=== PATIENT | male | born 1980 | race Caucasian/White ===

== ENCOUNTER 2021-11-07 16:54 | Emergency (ER) | payer SELFPAY ==
[2021-11-07 17:09] VITALS: BP 152/94; PULSE 68; RESP 16; TEMP 36.7; O2SAT 100
--- NOTE | 2021-11-07 17:30 | ED.SKABFB ---
HPI - Skin/Abscess/Foreign Bdy General Chief complaint: Skin/Abscess/Foreign Body Stated complaint: poison Wendy Time Seen by Provider: 11/07/21 17:30 Source: patient and RN notes reviewed Mode of arrival: ambulatory Limitations: no limitations History of Present Illness HPI narrative: 41 male presents concern for poison wendy. He reports rash has been there approximately 9 to 10 days. Reports he was exposed to poison wendy. He denies swollen lips, swollen tongue, trouble breathing. He denies [id number] intervention. MD complaint: rash Related Data Allergies Allergy/AdvReac Type Severity Reaction Status Date / Time No Known Allergies Allergy Unverified 11/07/21 17:07 Review of Systems Review of Systems: CONSTITUTIONAL: Denies malaise, chills, sweats, or fever. CARDIOVASCULAR: Denies chest pain, palpitations, or edema. RESPIRATORY: Denies cough or dyspnea. GASTROINTESTINAL: Denies abdominal pain, nausea, vomiting SKIN: Reports itchy rash to the legs, arm, face MUSCULOSKELETAL: Denies joint pain or myalgia. NEUROLOGIC: Denies headache. All systems reviewed & are unremarkable except as noted in HPI and below PMFSH Comments At time of signature, agree with nursing past medical, surgical, social and family history. There is no relevant family history pertinent to the presenting complaint Exam Narrative: GENERAL: Well-appearing, well-nourished, and in no acute distress. HEAD: Normocephalic, atraumatic. EYES: PERRLA, conjunctivae clear, and EOMI. ENT: Mucous membranes moist. Oropharynx without edema, erythema or lesions. NECK: Supple. No lymphadenopathy CHEST: Clear to auscultation. No respiratory distress. HEART: Regular rate and rhythm. SKIN: Warm, dry. Patches of erythematous papules noted to left lower leg, arms, cheek NEURO: Alert and oriented x3. PSYCH: Normal mood and affect Course Course Emergency Course: Patient is aware of diagnosis, understands and agrees to treatment plan. Anticipatory guidance given. Patient agrees to follow-up as directed and is aware of reasons to seek care at the emergency department. Portions of this record may have been created with voice recognition software Level of Care: Express Care Visit Vital Signs Vital signs: Vital Signs Temperature 98.0 F 11/07/21 17:09 Pulse Rate 68 11/07/21 17:09 Respiratory Rate 16 11/07/21 17:09 Blood Pressure 152/94 H 11/07/21 17:09 Pulse Oximetry 100 11/07/21 17:09 Oxygen Delivery Room Air 11/07/21 17:09 Temperature 98.0 F 11/07/21 17:09 Pulse Rate 68 11/07/21 17:09 Respiratory Rate 16 11/07/21 17:09 Blood Pressure 152/94 H 11/07/21 17:09 Pulse Oximetry 100 11/07/21 17:09 Oxygen Delivery Room Air 11/07/21 17:09 Reviewed. MDM - Skin/Abscess/Foreign Bdy MDM Narrative Medical decision making narrative: Does not appear at this time to be erythema multiforme, bullous, SJS, TEN; no evidence at this time to suggest RMSF, endocarditis or Lyme disease; patient looks well, nontoxic and is tolerating oral intake; no neurologic signs or symptoms; no headache, photophobia or neck pain; afebrile; appropriate for initial outpatient treatment; discussed the importance of follow-up, patient agrees; question, viral exanthema, contact dermatitis, allergic dermatitis, eczema, urticaria. No soft palate or uvula edema, no tongue, lip edema or other mucosal involvement, no respiratory compromise, no stridor, no wheezing, no wheezing, no history of syncope, no hypotension, no nausea, vomiting, or diarrhea. Instructed patient to go to nearest ER immediately for any worsening symptoms including but not limited to: fever, spreading rash, pain, sore throat, headache, dizziness, chest pain, trouble breathing, or any symptoms concerning to the patient. Critical Care Time Critical Care Time Critical Care Time: No Discharge Plan Discharge Clinical Impression: Contact dermatitis Qualifiers: Contact dermatitis type: unspecifi
== END 2021-11-07 17:36 | disposition home or self-care (01) ==
PROVIDERS: Emergency Provider Nurse Practitioner; PCP Emergency Medicine
DX: L25.5 Unspecified contact dermatitis due to plants, except food (principal)
CPT/HCPCS: 99213; G0463

== ENCOUNTER 2021-11-21 05:44 | Emergency (ER) | payer SELFPAY ==
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
[2021-11-21 05:50] VITALS: BP 133/96; PULSE 86; RESP 16; TEMP 36.5; O2SAT 97
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
[2021-11-21 06:54] VITALS: BP 123/87; PULSE 62; RESP 16; O2SAT 99
--- NOTE | 2021-11-21 06:54 | PC.NURSE ---
C collar applied per MD
== END 2021-11-21 07:01 | disposition home or self-care (01) ==
PROVIDERS: Emergency Provider Emergency Medicine; PCP Emergency Medicine
DX: S12.9XXA Fracture of neck, unspecified, initial encounter (principal); V86.99XA Unspecified occupant of other special all-terrain or other off-road motor vehicle injured in nontraffic accident, initial encounter
CPT/HCPCS: 72125; 99284; L0150

== ENCOUNTER 2023-05-22 04:13 | Emergency (ER) | payer OTHER, SELFPAY ==
--- NOTE | ~2023-05-22 | CT_ITS ---
EXAMINATION: CT abdomen pelvis wo con DATE: 05/22/2023 04:49 INDICATION: Right flank pain. TECHNIQUE: Computed tomography (CT) of the abdomen and pelvis was performed without intravenous contr ast. Automated exposure control and iterative reconstruction technique were employed. The dose-length product was 840.16 mGy-cm. COMPARISON: None. FINDINGS: The visualized portions of the lung bases demonstrate minimal atelectasis. No pleural effus ion. The heart size is normal. No pericardial effusion. The liver, gallbladder, spleen, pancreas, and adrenal glands are normal. There is mild right hydronephrosis and hydroureter. There is a 2 mm stone at right ureterovesicular junction. There is a 2.6 cm cyst in left kidney. The prostate is mildly en larged. There is diverticulosis of the colon without evidence of diverticulitis. The appendix is norm al. There are no dilated loops of bowel. There are no pathologically enlarged lymph nodes. There is n o free intraperitoneal fluid. There is mild thoracic and lumbar spondylosis. IMPRESSION: 1. 2 mm stone at right ureterovesicular junction with mild right hydronephrosis and hydroureter. Reviewed, dictated and finalized at location E. [employer] IMPRESSION: 1. 2 mm stone at right ureterovesicular junction with mild right hydronephrosi s and hydroureter.
[2023-05-22 04:18] VITALS: BP 164/123; PULSE 46; RESP 20; TEMP 36.8; O2SAT 100
--- NOTE | 2023-05-22 04:20 | ED.GENADULT ---
HPI - General Adult General Chief complaint: Abdominal Pain Stated complaint: abd pain, flank pain, rectal pain Time Seen by Provider: 05/22/23 04:18 History of Present Illness HPI narrative: Lance is a 42M with a PMH of asthma that presented to the ED with right flank pain that began 2 hours before coming to the ED. It woke him up with sleep. It is a severe stabbing pain that radiates down his left flank. It is better with movement and pacing and worse with sitting still. He has had some nausea but no vomiting. No chest pain, dyspnea, vomiting or diarrhea. No dysuria or gross hematuria reported. Related Data Allergies Allergy/AdvReac Type Severity Reaction Status Date / Time No Known Allergies Allergy Unverified 05/22/23 04:15 Review of Systems Review of Systems: All systems reviewed & are unremarkable except as noted in HPI and below PMFSH Past Medical History Medical History No active medical problems Social History Social History Smoking status: Never smoker Gender identity (if verbalized by the patient): Male Sexual Orientation (if Verbalized by the Patient): Straight or Heterosexual Exam Const: General: cooperative, healthy appearing, well developed, alert, awake and Physically active Orientation/consciousness: oriented to person, oriented to place and oriented to time Other: Was pacing around his ED room HENMT: Head: normal to inspection, normocephalic and atraumatic Ears: hearing grossly normal bilaterally and external ears normal Face/Nose/Sinus: Normal external nose present Eyes: General: appearance normal, both eyes and all related structures Periorbital: periorbital findings normal Sclera: sclerae normal Pupils: Equal, round and reactive pupils present Neck: Neck: normal visual inspection Chest: Chest palpation & inspection: normal inspection of the chest Resp: Effort & Inspection: normal respiratory effort, able to speak in complete sentences and no respiratory distress Auscultation: clear to auscultation bilaterally Cardio: Jugular venous distension: no JVD Rate: regular rate Rhythm: regular rhythm GI: Inspection: normal to inspection GI Palp: Yes Soft to palpation Auscultation: normal bowel sounds : Other: +right flank pain Skin: General skin exam: normal color and no rashes or lesions noted Neuro: General: oriented to person, oriented to place and oriented to time Cranial nerves: Yes Equal, round and reactive pupils present Extrem: General: normal to inspection Course Course Emergency Course: Ordered labs, UA, CT abd/pelvis wo contrast, toradol, zofran and morphine CBC showed normal Hgb and WBC, Slightly elevated Cr. at 1.3, and a UA that showed 2+ blood but no nitrites or leuk esterase EXAMINATION: CT abdomen pelvis wo con DATE: 05/22/2023 04:49 INDICATION: Right flank pain. TECHNIQUE: Computed tomography (CT) of the abdomen and pelvis was performed without intravenous contrast. Automated exposure control and iterative reconstruction technique were employed. The dose-length product was 840.16 mGy-cm. COMPARISON: None. FINDINGS: The visualized portions of the lung bases demonstrate minimal atelectasis. No pleural effusion. The heart size is normal. No pericardial effusion. The liver, gallbladder, spleen, pancreas, and adrenal glands are normal. There is mild right hydronephrosis and hydroureter. There is a 2 mm stone at right ureterovesicular junction. There is a 2.6 cm cyst in left kidney. The prostate is mildly enlarged. There is diverticulosis of the colon without evidence of diverticulitis. The appendix is normal. There are no dilated loops of bowel. There are no pathologically enlarged lymph nodes. There is no free intraperitoneal fluid. There is mild thoracic and lumbar spondylosis. IMPRESSION: 1.? 2 mm stone at right ureterovesical junction with mil
[2023-05-22] MEDS: MORPHINE SULFATE (*CRX) 4 MG/ML INJ IV PUSH (04:33)
[2023-05-22] MEDS: ONDANSETRON INJ 4 MG/2 ML VIAL IV PUSH (04:33)
[2023-05-22] MEDS: KETOROLAC 30 MG/ML VIAL (*BKC) IV PUSH (04:33)
[2023-05-22] MEDS: LACTATED RINGERS 1,000 ML 999 ML IV CONT (04:37)
[2023-05-22 04:59] LABS: Basophils Absolute Auto 0.05 K/mm3 (0.00-0.10); Basophils Percent Auto 0.5 % (0.0-1.0); Eosinophils Percent Auto 0.9 % (1.0-6.0); Hematocrit 43.7 % (40.0-54.0); Hemoglobin 14.2 g/dL (14.0-18.0); Immature Granulocyte Absolute 0.05 K/mm3 (0.00-0.00); Immature Granulocyte Percent A 0.5 % (0.0-0.0); Lymphocytes Absolute Auto 1.54 K/mm3 (1.10-4.50); Lymphocytes Percent Auto 14.5 % (18.0-42.0); Mean Corpuscular HGB Conc 32.5 g/dL (32.0-36.0); Mean Corpuscular Hemoglobin 31.1 pg (27.0-31.0); Mean Corpuscular Volume 95.8 fL (78.0-102.0); Mean Platelet Volume 10.1 fl (8.7-11.0); Monocytes Absolute Auto 0.63 K/mm3 (0.10-0.90); Monocytes Percent Auto 5.9 % (2.0-11.0); Neutrophils Absolute Auto 8.3 K/mm3 (1.7-7.2); Neutrophils Percent Auto 77.7 % (50.0-70.0); Platelet Count Result 216 K/mm3 (150-420); Red Blood Count 4.56 M/mm3 (4.70-6.10); Red Cell Distribution Width 12.9 % (11.6-14.4); White Blood Count 10.7 K/mm3 (4.8-10.8)
[2023-05-22 05:03] LABS: Appearance Urine Clear (Clear); Bilirubin Urine Negative (Negative); Blood Urine 2+ (Negative); Color Urine Yellow (Yellow); Glucose Urine UA Negative (Negative); Ketones Urine Negative (Negative); Leukocyte Esterase Ur Negative LEU/UL (Negative); Nitrate Urine Negative (Negative); Protein Urine Negative (Negative); Specific Grav Ur 1.025 (1.010-1.020); Urobilinogen Urine 0.2 mg/dL (0.2-1.0); pH Urine 6.5 (5.0-8.0)
[2023-05-22 05:08] LABS: Add Urine Microscopic? YES; Bacteria Urine Trace /hpf; Squamous Epithelial Cell Urine None seen /hpf (Few); WBC Urine 0-3 /hpf (0-3)
[2023-05-22 05:11] VITALS: BP 154/87; PULSE 47; RESP 16; O2SAT 100
[2023-05-22 05:15] LABS: Alanine Aminotransferase 27 U/L (16-63); Albumin Level 4.1 g/dL (3.4-5.0); Alkaline Phosphatase 55 U/L (46-116); Anion Gap 5 mmol/L (8-16); Aspartate Amino Transferase 12 U/L (15-37); Bilirubin,Total 0.3 mg/dL (0.00-1.00); Blood Urea Nitrogen 23 mg/dL (7-18); Calcium 8.7 mg/dL (8.5-10.1); Carbon Dioxide 33 mmol/L (21-32); Chloride 101 mmol/L (98-108); Estimated Glomerular Filt Rate 57; Glucose 111 mg/dL (70-99); Lipase 31 U/L (16-77); Osmolality Calculated 292 mOsm/kg (285-295); Sodium 139 mmol/L (136-145); Total Protein 7.6 g/dL (6.4-8.2)
[2023-05-22 05:20] LABS: Lactic Acid Reflex 1.8 mmol/L (0.4-2.0)
[2023-05-22 05:36] LABS: CRP < 0.5 mg/dL (0.0-0.9)
[2023-05-22 06:18] VITALS: BP 142/79; PULSE 59; RESP 18; O2SAT 99
== END 2023-05-22 06:52 | disposition home or self-care (01) ==
PROVIDERS: Emergency Provider Family Medicine
DX: N20.1 Calculus of ureter (principal)
CPT/HCPCS: 36415; 74176; 80053; 81001; 83605; 83690; 85025; 86140; 96361; 96374; 96375; 99284; J1885; J2270; J2405; J7120